=== PATIENT | male | born 1965 | race Hispanic/Latino ===

== ENCOUNTER 2018-08-12 12:21 | Emergency (ER) | payer MEDICARE ==
[2018-08-12] MEDS ORDERED: Adacel (T-DAP) 0.5 ML SYRINGE ONE (12:39)
[2018-08-12] MEDS ORDERED: Lidocaine 1% (PF) 30 ML VIAL ONE (12:57)
[2018-08-12] MEDS ORDERED: Bacitracin Zinc 1 Packet ONE (13:30)
== END 2018-08-12 13:40 | disposition home or self-care (01) ==
LOC: NAV ERS 12:21
DX: S61.213A Laceration without foreign body of left middle finger without damage to nail, initial encounter (principal); K21.9 Gastro-esophageal reflux disease without esophagitis; E78.5 Hyperlipidemia, unspecified; F41.9 Anxiety disorder, unspecified; Z79.899 Other long term (current) drug therapy; W45.8XXA Other foreign body or object entering through skin, initial encounter
CPT/HCPCS: 12001; 90471; 90715; J2001

== ENCOUNTER 2021-02-24 11:19 | Emergency (ER) | payer MEDICARE ==
[2021-02-24 12:14] LABS: #Basophils 0.1 thou/uL (0.0-0.2); #Eosinphils 0.1 thou/uL (0.0-0.7); #Lymphocytes 1.4 thou/uL (1.20-3.40); #Monocytes 0.3 thou/uL (0.11-0.59); #Neutrophils 4.3 thou/uL (1.40-6.50); %Basophils 0.8 % (0.0-1.0); %Eosinophils 2.4 % (0.0-10.0); %Lymphocytes 22.7 % (21.0-51.0); %Monocytes 4.6 % (0.0-10.0); %Neutrophils 69.4 % (42.0-75.0); Hemoglobin 14.7 g/dL (14.0-18.0); Mean Corpuscular HGB CONC 32.8 g/dL (32.0-36.0); Mean Corpuscular Hemoglobin 29.2 pg (27.0-31.0); Mean Corpuscular Volume 88.9 fL (78.0-98.0); Mean Platelet Volume 8.3 fL (7.4-10.4); Platelet Count 266 thou/uL (130-400); RBC Distribution Width 11.5 % (11.5-14.5); Red Blood Cell (RBC) Count 5.04 mill/uL (4.70-6.10); White Blood Cell (WBC) Count 6.2 thou/uL (4.8-10.8)
[2021-02-24 12:23] LABS: ALT (SGPT) 40 U/L (8-55); AST (SGOT) 30 U/L (5-34); Albumin 4.3 g/dL (3.5-5.0); Alkaline Phosphatase 57 U/L (40-110); Anion Gap 14 mmol/L (10-20); BUN (Urea Nitrogen) 12 mg/dL (8.4-25.7); Bilirubin, Total 0.6 mg/dL (0.2-1.2); Calc. Creatinine Clearance 0 mL/min (70-130); Calcium 9.7 mg/dL (7.8-10.44); Carbon Dioxide 23 mmol/L (22-29); Chloride 103 mmol/L (98-107); Globulin 3.4 g/dL (2.4-3.5); Glucose 90 mg/dL (70-105); Potassium 3.8 mmol/L (3.5-5.1); Protein, Total 7.7 g/dL (6.0-8.3); Sodium 136 mmol/L (136-145)
[2021-02-24 13:04] LABS: Bilirubin Negative (Negative); Blood, Urine Trace (Negative); Clarity Clear (Clear); Glucose, Urine (Dipstick) Negative (Negative); Ketone, Urine Negative (Negative); Leukocyte Negative (Negative); Nitrite Negative (Negative); Protein, Urine (Dipstick) Negative (Neg-Trace); Urobilinogen 0.2 mg/dL (Less than 2)
[2021-02-24 13:12] LABS: Bacteria/HPF None Seen HPF (None Seen); RBC/HPF 0-3 HPF (0-3); Squamous Epithelial None Seen HPF (0-3); WBC/HPF None Seen HPF (0-3)
[2021-02-24] MEDS ORDERED: Ondansetron PF 4 MG/2 ML Vial ONE (13:44)
[2021-02-24] MEDS ORDERED: Metoclopramide HCl 10 MG/2 ML VIAL ONE (15:10)
[2021-02-24] MEDS ORDERED: diphenhydrAMINE 50 MG/ML VIAL ONE (15:10)
[2021-02-24] MEDS ORDERED: Sodium Chloride 0.9% 1,000 ML ONE (15:10)
== END 2021-02-24 19:29 | disposition short-term general hospital (02) ==
LOC: NAV ERS 11:19
DX: R55 Syncope and collapse (principal); E78.5 Hyperlipidemia, unspecified; K21.9 Gastro-esophageal reflux disease without esophagitis; Z79.899 Other long term (current) drug therapy
CPT/HCPCS: 70450; 71045; 80053; 81003; 81015; 83690; 84484; 85025; 93005; 96365; 96375; J1200; J2405; J2765; J7050

== ENCOUNTER 2021-11-12 11:47 | Emergency (ER) | payer MEDICARE ==
[2021-11-12] MEDS ORDERED: Lidocaine 1% w/Epinephrine 1:100K 20 ML VIAL ONE (11:59)
[2021-11-12] MEDS ORDERED: Boostrix 0.5 ML (Tdap) VIAL ONE ×2 (12:01→12:03)
[2021-11-12] MEDS ORDERED: TETANUS, DIPHTHERIA TOX,ADULT (TDVAX) 0.5 ML VIAL IM ONE (12:05)
== END 2021-11-12 15:38 | disposition home or self-care (01) ==
LOC: NAV ERS 11:47
DX: S31.010A Laceration without foreign body of lower back and pelvis without penetration into retroperitoneum, initial encounter (principal); K21.9 Gastro-esophageal reflux disease without esophagitis; G47.30 Sleep apnea, unspecified; E78.2 Mixed hyperlipidemia; Z23 Encounter for immunization; W18.30XA Fall on same level, unspecified, initial encounter
CPT/HCPCS: 12031; 90471; 90714; 90715

== ENCOUNTER 2021-11-22 11:15 | Emergency (ER) | payer MEDICARE ==
[2021-11-22] MEDS ORDERED: Bacitracin 1 PK ONE (11:32)
== END 2021-11-22 11:37 | disposition home or self-care (01) ==
LOC: NAV ERS 11:15
DX: S31.010D Laceration without foreign body of lower back and pelvis without penetration into retroperitoneum, subsequent encounter (principal); E78.5 Hyperlipidemia, unspecified; E78.00 Pure hypercholesterolemia, unspecified; G47.30 Sleep apnea, unspecified; K21.9 Gastro-esophageal reflux disease without esophagitis; X58.XXXD Exposure to other specified factors, subsequent encounter

== ENCOUNTER 2021-12-17 07:45 | Emergency (ER) | payer MEDICARE ==
[2021-12-17 08:40] LABS: Clarity Clear (Clear)
[2021-12-17 08:41] LABS: Bilirubin Negative (Negative); Blood, Urine Trace (Negative); Glucose, Urine (Dipstick) Negative (Negative); Ketone, Urine Negative (Negative); Leukocyte Negative (Negative); Nitrite Negative (Negative); Protein, Urine (Dipstick) Trace mg/dL (Neg-Trace); RBC/HPF 0-3 HPF (0-3); Urobilinogen 0.2 mg/dL (Less than 2); WBC/HPF None Seen HPF (0-3)
[2021-12-17 08:42] LABS: Bacteria/HPF Rare-Few HPF (None Seen); Squamous Epithelial None Seen HPF (0-3)
[2021-12-17 08:43] LABS: Amphetamine Not Detected (NotDetected); Barbiturates Screen Not Detected (NotDetected); Benzodiazepine Screen Not Detected (NotDetected); Cocaine Metabolite Screen Not Detected (NotDetected); Medtox Control Line Valid? VALID (VALID); Methadone Not Detected (NotDetected); Methamphetamine Not Detected (NotDetected); Opiate Screen Not Detected (NotDetected); Oxycodone Screen Not Detected (NotDetected); Phencyclidine (PCP) Not Detected (NotDetected); Tricyclic Screen Not Detected (NotDetected)
[2021-12-17] MEDS ORDERED: Aspirin 325 MG TAB ONE (08:51)
[2021-12-17 08:52] LABS: THC/Cannabinoid Screen Not Detected (NotDetected)
[2021-12-17 08:52] LABS: #Eosinphils 0.1 thou/uL (0.0-0.7); #Monocytes 0.4 thou/uL (0.11-0.59); #Neutrophils 2.4 thou/uL (1.40-6.50); %Basophils 0.6 % (0.0-1.0); %Eosinophils 2.5 % (0.0-10.0); %Lymphocytes 25.1 % (21.0-51.0); %Monocytes 11.5 % (0.0-10.0); %Neutrophils 60.3 % (42.0-75.0); Hemoglobin 13.3 g/dL (14.0-18.0); Manual Diff?? NO; Mean Corpuscular HGB CONC 30.9 g/dL (32.0-36.0); Mean Corpuscular Hemoglobin 28.6 pg (27.0-31.0); Mean Corpuscular Volume 92.7 fL (78.0-98.0); Mean Platelet Volume 9.2 fL (7.4-10.4); Platelet Count 195 thou/uL (130-400); RBC Distribution Width 12.9 % (11.5-14.5); Red Blood Cell (RBC) Count 4.66 mill/uL (4.70-6.10); White Blood Cell (WBC) Count 3.9 thou/uL (4.8-10.8)
[2021-12-17 09:01] LABS: Acetaminophen Less than 10.0 mcg/mL (10.0-30.0); Alcohol Less than 10 mg/dL (Less than 10); Salicylate Less than 8.0 mg/dL (15.0-30.0)
[2021-12-17 09:04] LABS: ALT (SGPT) 32 U/L (8-55); AST (SGOT) 39 U/L (5-34); Albumin 4.3 g/dL (3.5-5.0); Alkaline Phosphatase 60 U/L (40-110); Anion Gap 16 mmol/L (10-20); BUN (Urea Nitrogen) 11 mg/dL (8.4-25.7); Bilirubin, Total 1.1 mg/dL (0.2-1.2); Calc. Creatinine Clearance 0 mL/min (70-130); Carbon Dioxide 21 mmol/L (22-29); Chloride 108 mmol/L (98-107); Globulin 2.8 g/dL (2.4-3.5); Glucose 98 mg/dL (70-105); Potassium 3.8 mmol/L (3.5-5.1); Protein, Total 7.1 g/dL (6.0-8.3); Sodium 141 mmol/L (136-145)
[2021-12-17 10:34] LABS: SARS-CoV-2 NAA Rapid Test Not Detected (NotDetected)
== END 2021-12-17 11:14 | disposition short-term general hospital (02) ==
LOC: NAV ERS 07:45
DX: I10 Essential (primary) hypertension (principal); R29.898 Other symptoms and signs involving the musculoskeletal system; R29.701 NIHSS score 1; K21.9 Gastro-esophageal reflux disease without esophagitis; E78.5 Hyperlipidemia, unspecified; R00.1 Bradycardia, unspecified; H55.09 Other forms of nystagmus; E78.00 Pure hypercholesterolemia, unspecified; G47.30 Sleep apnea, unspecified; Z20.822 Contact with and (suspected) exposure to COVID-19; Z79.899 Other long term (current) drug therapy
CPT/HCPCS: 70450; 71045; 80053; 80306; 80307; 83880; 84484; 85025; 93005; 94760; U0002; 81003; 81015